=== PATIENT | male | born 1985 | race Caucasian/White ===

== ENCOUNTER 2021-09-27 10:05 | Emergency (ER) | payer BC ==
[~2021-09-27] VITALS: Ht 172.7 cm; Wt 54.4 kg
[2021-09-27] MEDS ORDERED: LORAZEPAM INJ 2 MG/ML VIAL ONE ×2 (10:10→18:35)
[2021-09-27] MEDS ORDERED: HALOPERIDOL LACTATE INJ 5 MG/ML VIAL ONE ×3 (10:10→18:36)
--- NOTE | 2021-09-27 10:15 | NUR ---
SYLVIA 860 FROM HOME C/O ACTING BIZARRE "HE JUMP IN THE POOL AND REMOVED ALL HIS CLOTHES" ON 5150 HOLD BY [employer]. THE PATIENT IS TALKING TO SELF, SCREAMING WITH NO APPARENT REASON. WILL CONTINUE TO MONITOR THE PATIENT.
[2021-09-27] MEDS ORDERED: HALOPERIDOL LACTATE INJ 5 MG/ML VIAL IVP ONE (10:30)
[2021-09-27] MEDS ORDERED: LORAZEPAM INJ 2 MG/ML VIAL IM ONE (10:30)
[2021-09-27 10:56] LABS: BASOPHILS % (AUTO) 0.7 % (0.0-2.0); EOSINOPHILS % (AUTO) 1.3 % (0.0-6.0); HEMATOCRIT 46 % (39-51); HEMOGLOBIN 15.6 g/dL (13.5-17.5); LYMPHOCYTES # (AUTO) 1.5 K/uL (0.8-4.8); LYMPHOCYTES % (AUTO) 25.2 % (20.0-44.0); MEAN CORPUSCULAR HGB CONC 34 g/dl (31.0-36.0); MEAN CORPUSCULAR VOLUME 92 fL (80-96); MONOCYTES # (AUTO) 0.8 K/uL (0.1-1.30); MONOCYTES % (AUTO) 13.8 % (2.0-12.0); NEUTROPHILS # (AUTO) 3.5 K/uL (1.8-8.9); PLATELET COUNT (AUTO) 202 K/uL (150-450); RED BLOOD CELL COUNT(AUTO) 5.03 MIL/uL (4.5-6.0)
[2021-09-27 11:17] LABS: ALANINE AMINOTRANSFERASE 19 U/L (12-78); ALBUMIN 4.1 g/dL (3.4-5.0); ALCOHOL, BLOOD < 3 mg/dL (0-0); ALKALINE PHOSPHATASE 63 U/L (46-116); ASPARTATE AMINOTRANSFERASE 9 U/L (15-37); BILIRUBIN,DIRECT 0.2 mg/dL (0.0-0.2); BILIRUBIN,TOTAL 0.7 mg/dL (0.2-1.0); CARBON DIOXIDE 27 mmol/L (21-32); CHLORIDE 105 mmol/L (98-107); CREATININE 0.7 mg/dL (0.6-1.3); SODIUM SERUM 141 mmol/L (136-145); TOTAL PROTEIN, SERUM 7.1 g/dL (6.4-8.2); UREA NITROGEN, BLOOD 12 mg/dL (7-18)
[2021-09-27 11:21] LABS: ACETAMINOPHEN 0 ug/ml (10-30)
[2021-09-27 11:32] LABS: GLUCOSE 83 mg/dL (74-106)
--- NOTE | 2021-09-27 16:21 | NUR ---
FAXED CLINICALS TO [facility] [FAX: [phone], TELE: [phone]], [facility] [FAX: [phone], TELE: [phone]], [facility] [FAX: [phone], TELE: [phone]], [facility] [FAX: [phone], TELE: [phone]]. Please fax labs over once ready.
[2021-09-27 16:25] LABS: BILIRUBIN,URINE SMALL (NEGATIVE); COLOR,URINE YELLOW (YELLOW); LEUKOCYTE ESTERASE ,URINE NEGATIVE (NEGATIVE); NITRITE, URINE NEGATIVE (NEGATIVE); PROTEIN,URINE NEGATIVE (NEGATIVE); UGLUCOSE NEGATIVE (NEGATIVE); UROBILINOGEN,URINE 0.2 EU/dL (0.2)
[2021-09-27] MEDS ORDERED: HALOPERIDOL LACTATE INJ 5 MG/ML VIAL IM ONE ×2 (16:30→18:00)
--- NOTE | 2021-09-27 16:54 | NUR ---
[facility] WILL ACCEPT PATIENT PENDING TOXICOLOGY AND COVID TEST FAXED NUMBER: [phone] TEL # [phone], ANGELA
--- NOTE | 2021-09-27 16:55 | NUR ---
COVID ANTIGEN SWAB DONE AND SENT TO THE LAB
[2021-09-27] MEDS ORDERED: LORAZEPAM INJ 2 MG/ML VIAL IM/IV ONE (18:00)
--- NOTE | 2021-09-27 18:45 | NUR ---
ACCEPTED AT [facility]. REPORT GIVEN. WILL ARRANGE TRANSPORT.
--- NOTE | 2021-09-27 18:55 | NUR ---
CALLED [facility] AND SET UP S TRANSPORT TO [facility]
[2021-09-27 20:00] VITALS: BP 132/72
--- NOTE | 2021-09-27 21:17 | NUR ---
REPORT GIVEN TO EMS AT BEDSIDE
--- NOTE | 2021-09-27 21:26 | NUR ---
[facility]
== END 2021-09-27 21:27 ==
LOC: ER 10:07
DX: F29 Unspecified psychosis not due to a substance or known physiological condition (principal); Z20.822 Contact with and (suspected) exposure to COVID-19; F31.9 Bipolar disorder, unspecified; F20.9 Schizophrenia, unspecified
CPT/HCPCS: 36415; 80048; 80076; 80143; 80307; 80320; 81003; 85025; 87426; 96372 ×2; 99291; C9803; J1630 ×3; J2060 ×2; J7040; G0480